=== PATIENT | female | born 1985 | race African-American/Black ===

== ENCOUNTER 2016-08-10 09:08 | Emergency (ER) | payer SELFPAY ==
[~2016-08-10] VITALS: Ht 165.1 cm; Wt 54.4 kg
[~2016-08-10 09:08] MED LIST: AMOX500C2 PO; CIPR500T4 PO; CYCL10TA9 PO; HYDR-1231 PO; IBP800T PO; IBUP-1773 PO; METH500T35 PO; NAPR-243 PO; NITR-65 PO; ONDAN4ODT PO; PENI500T PO; PHEN-639 PO; PRD20T PO; PRM25T PO; TRM50T PO
--- OUTSIDE RECORDS SUMMARY | 2016-08-10 09:13 | XMS REPORT | Continuity of Care Document ---
Author Author [facility] Organization [facility] Address Unknown Phone Unavailable Care Team Providers Care Transmission And Coordination Engineer Name Role Phone [facility] Insurance Providers Payer Name Policy Number Subscriber Name Relationship Unknown Daksha Keen 17 Self / Same As Patient Advance Directives Directive Response Recorded Date/Time Advance Directives No 05/06/16 11:31pm Health Care Power of Landscape Contractor No 05/06/16 11:31pm Organ Donor No 05/06/16 11:31pm Resuscitation Status Full Code 05/06/16 11:31pm Chief Complaint and Reason for Visit Chief Complaint Abdominal/GI Problems Reason for Visit Urinary tract infection Problems Active Problems Medical Problem Onset Date Status Fracture of toe Unknown Acute Muscle spasms of head AND/OR neck Unknown Acute Muscle strain Unknown Acute Sprain and strain of foot Unknown Acute Urinary tract infection Unknown Acute Medications Current Home Medications Medication Dose Units Route Directions Days/Qty Instructions Start Date Ibuprofen (Motrin) 600 Mg 600 Mg Oral Every 8HRS as needed for Pain 20 08/23/13 Hydrocodone Bit/Acetaminophen 1 Tab 1 Tab Oral Every 4HRS as needed for Pain 20 07/14/14 Ciprofloxacin Hcl 500 Mg 500 Mg Oral Twice A Day 13 05/07/16 Phenazopyridine Hcl 100 Mg 100 Mg Oral Three Times A Day as needed for Pain 12 05/07/16 Past Home Medications Medication Directions Ordered Status Ibuprofen 800 Mg Tab, 1 Tab Oral As Needed 01/13/11 Discontinued Tramadol Hcl 50 Mg Tab, 1 Tab Oral As Needed 08/01/11 Discontinued Naproxen 500 Mg Tablet, 1 Each Oral Three Times A Day And Prn 04/01/11 Discontinued Penicillin V Potassium 500 Mg Tablet, 1 Tab Oral Four Times Daily 04/01/11 Discontinued Amoxicillin 500 Mg Capsule, 21 Each Oral Three Times A Day 10/29/11 Discontinued Naproxen 500 Mg Tablet, 1 Each Oral Twice A Day as needed 10/29/11 Discontinued Nitrofurantoin Macrocrystals 100 Mg Capsule, 1 Each Oral Twice A Day Discontinued Ondansetron Hcl 4 Mg Tab, 4 Mg Oral Every 4HRS 11/19/11 Discontinued Cyclobenzaprine Hcl (Flexeril) 10 Mg Tablet, 1 Each Oral Twice A Day Discontinued Naproxen 500 Mg Tablet, 1 Each Oral Bid - Tid Prn 07/11/12 Discontinued Ibuprofen 800 Mg Tab, 800 Mg Oral Give Every 6 Hr On Schedule 09/29/12 Discontinued Methocarbamol 500 Mg Tablet, 500 Mg Oral Four Times Daily 09/29/12 Discontinued Tramadol Hcl 50 Mg Tab, 50 Mg Oral Q4-6HOURS as needed 09/29/12 Discontinued Promethazine Hcl 25 Mg Tablet, 1 Tab Oral Every 4HRS 10/27/12 Discontinued Prednisone 20 Mg Tab, 20 Mg Oral Daily 08/23/13 Discontinued Social History Social History Problem Response Recorded Date/Time Alcohol Use Occasionally Uses 07/14/2014 4:27pm Recreational Drug Use No 07/14/2014 4:27pm Recent Foreign Travel No 05/06/2016 11:31pm Recent Infectious Disease Exposure No 05/06/2016 11:31pm Smoking Status Current Everyday Smoker 05/06/2016 11:42pm Type Used Cigarettes 05/06/2016 11:31pm Recent Hopitalizations No 05/06/2016 11:31pm Query Response Start Date Stop Date Smoking Status Current Everyday Smoker Hospital Discharge Instructions No hospital discharge instructions. Plan of Care Discharge Date 05/07/16 12:08am Disposition 01 HOME, SELF-CARE Condition at Discharge Stable Instructions/Education Provided Urinary Tract Infection, Adult (DC) Prescriptions See Medication Section Referrals [facility] - Primary Care Physician Additional Instructions/Education All discharge instructions reviewed with patient and/or family. Voiced understanding. Drink plenty fluids. Take medications as directed. Follow-up with her in a few days for recheck. Return for worse pain, fever, vomiting, weakness, breathing problems or other concerns as needed. You may take Tylenol 1000 mg every 8 hours as needed for pain. You may take ibuprofen 800 mg every 8 hours as needed for pain. Functional Status No functional status results. Allergies, Adverse Reactions, Alerts No known allergies. Immunizations No immunization records. Vital Signs Acute Vital Signs Vital Response Date/Time Temperature (Fahrenheit) 96.2 degrees F (97.6 - 99.5) 05/06/2016 11:31pm Temperature (Calculated Celsius) 35.69700 degrees C (36.4 - 37.5) 05/06/2016 11:31pm Temperature Source Temporal 05/06/2016 11:31pm Pulse Rate (adult) 97 bpm (60 - 90) 05/06/2016 11:31pm Respiratory Rate 18 bpm (12 - 24) 05/06/2016 11:31pm O2 Sat by Pulse Oximetry 99 % (88 - 100) 05/06/2016 11:31pm Blood Pressure 115/79 mm Hg 05/06/2016 11:31pm Blood Pressure Mean 91 mm Hg 05/06/2016 11:31pm Pain Numeric Pain Scale 10-Worst Possible Pain 05/07/2016 12:07am Height (Feet) 5 feet 05/06/2016 11:31pm Height (Inches) 5 inches 05/06/2016 11:31pm Height (Calculated Centimeters) 165.475556 cm 05/06/2016 11:31pm Weight (Pounds) 120 pounds 05/06/2016 11:31pm Weight (Calculated Kilograms) 54.674941 kilograms 05/06/2016 11:31pm Capillary Refill Capillary Refill Less Than 3 Seconds 05/06/2016 11:31pm Height 5 ft 5 in Weight 120 lb Body Mass Index 20.0 kg/m^2 Results Laboratory Results Test Name Result Units Flags Reference Collection Date/Time Result Date/ Time Comments Urine Color YELLOW 05/06/2016 11:31pm 05/06/2016 11:52pm Urine Clarity VERY CLOUDY * 05/06/2016 11:31pm 05/06/2016 11:52pm Urine pH 6 5-9 05/06/2016 11:31pm 05/06/2016 11:52pm Urine Specific [place] 1.020 1.016-1.022 05/06/2016 11:31pm 2015 11:52pm Urine Protein 4+ NEGATIVE 05/06/2016 11:31pm 05/06/2016 11:52pm Urine Glucose (UA) NEGATIVE NEGATIVE 05/06/2016 11:31pm 05/06/2016 11 :52pm Urine RBC (Auto) 5+ * NEGATIVE 05/06/2016 11:31pm 05/06/2016 11:52pm Urine Ketones NEGATIVE NEGATIVE 05/06/2016 11:31pm 05/06/2016 11: 52pm Urine Nitrite POSITIVE * NEGATIVE 05/06/2016 11:31pm 05/06/2016 11: 52pm Urine Bilirubin NEGATIVE NEGATIVE 05/06/2016 11:31pm 05/06/2016 11: 52pm Urine Urobilinogen NORMAL MG/DL NORMAL 05/06/2016 11:31pm 05/06/2016 11 :52pm Urine Leukocyte Esterase 3+ * NEGATIVE 05/06/2016 11:31pm 05/06/2016 11 :52pm Urine RBC >100 /HPF * 05/06/2016 11:31pm 05/06/2016 11:52pm Urine WBC TNTC /HPF * 05/06/2016 11:31pm 05/06/2016 11:52pm Urine Bacteria LARGE /HPF * 05/06/2016 11:31pm 05/06/2016 11:52pm Urine Squamous Epithelial Cells 2-5 /HPF 05/06/2016 11:31pm 2015 11:52pm Urine Crystals NONE /LPF 05/06/2016 11:31pm 05/06/2016 11:52pm Urine Casts NONE /LPF 05/06/2016 11:31pm 05/06/2016 11:52pm Urine Mucus NEGATIVE /LPF 05/06/2016 11:31pm 05/06/2016 11:52pm Urine Culture Indicated YES 05/06/2016 11:31pm 05/06/2016 11:52pm Procedures No known history of procedures. Encounters Encounter Location Arrival/Admit Date Discharge/Depart Date Attending Provider Departed Emergency Room [facility] 05/06/16 11:26pm 12:08am MARGARET GALLARDO MD Recent Diagnosis
--- NOTE | 2016-08-10 09:37 | ED General ---
General Chief Complaint: Cough/Cold/Flu Symptoms Stated Complaint: COUGH/CONGESTION/EYE DRAINAGE Nursing Triage Note: pt reports cough/congestion/throat pain x 1 week. Nursing Sepsis Screen: No Definite Risk Source of Information: Patient Exam Limitations: No Limitations History of Present Illness Time Seen by Provider: 09:16 Initial Comments This 31-year-old woman presents to the emergency room with complaints of intense cough, chest discomfort, congestion, and eye irritation for nearly one week. She denies myalgia or headache. She is afebrile. She has been taking DayQuil, Mucinex, and other wlui-lvj-ecnppjn cough medications. She has taken ibuprofen as well. She denies with her last menstrual period being July 04. She admits to tobacco use. Allergies and Home Medications Allergies Coded Allergies: No Known Drug Allergies (Unverified , 01/13/11) Home Medications No Active Prescriptions or Reported Meds Constitutional: no symptoms reported EENTM: see HPI Respiratory: see HPI Cardiovascular: other (tachycardic) Gastrointestinal: no symptoms reported Genitourinary: no symptoms reported : No LMP: Jul 04, 2016 Musculoskeletal: no symptoms reported Skin: no symptoms reported Psychiatric/Neurological: No Symptoms Reported Past Kbtwzyj-Puuxvr-Eehprv Hx Patient Social History Alcohol Use: Denies Use Recreational Drug Use: No Smoking Status: Current Everyday Smoker Type Used: Cigarettes Recent Foreign Travel: No Contact w/Someone Who Travel: No Recent Infectious Disease Expo: No Recent Hopitalizations: No Immunizations Up To Date Tetanus Booster (TDap): More than 5yrs Seasonal Allergies Seasonal Allergies: No Surgeries HX Surgeries: No Respiratory Hx Respiratory Disorders: No Cardiovascular Hx Cardiac Disorders: Yes Cardiac Disorders: Heart Murmur Neurological Hx Neurological Disorders: No Reproductive System : No Hx Reproductive Disorders: No Genitourinary Hx Genitourinary Disorders: No Gastrointestinal Hx Gastrointestinal Disorders: No Musculoskeletal Hx Musculoskeletal Disorders: Yes Musculoskeletal Disorders: Chronic Back Pain Endocrine Hx Endocrine Disorders: No HEENT HX ENT Disorders: No Cancer Hx Cancer: No Psychosocial Hx Psychiatric Problems: No Integumentary HX Skin/Integumentary Disorder: No Blood Transfusions Hx Blood Disorders: No Family Medical History Significant Family History: Diabetes Physical Exam Vital Signs Vital Sign - Last 12Hours 08/10/16 08/10/16 09:14 09:45 Temp 97.7 Pulse 110 Resp 18 B/P 130/85 Pulse Ox 96 O2 Delivery Room Air Capillary Refill : Less Than 3 Seconds General Appearance: No Apparent Distress WD/WN HEENT: PERRL/EOMI Pharynx Normal Other (watery eyes with scleral erythema bilaterally) Neck: Normal Inspection Respiratory: Lungs Clear Normal Breath Sounds No Accessory Muscle Use No Respiratory Distress Other (no forced expiratory wheeze. Cough noted) Cardiovascular: No Edema No Murmur Tachycardia Extremity: Normal Inspection No Pedal Edema Neurologic/Psychiatric: Alert Oriented x3 No Motor/Sensory Deficits Normal Mood/Affect senior boiler operator II-XII Norm as Tested Skin: Normal Color Warm/Dry Progress/Results/Core Measures Results/Orders Micro Results Microbiology 08/10/16 Influenza Types A,B Antigen (CHARLIE) - Final, Complete My Orders Orders-OLIVA MOSELEY MD Influenza A And B Antigens (08/10/16 09:16) Urine Bedside (08/10/16 09:39) Vital Signs/I&O Vital Sign - Last 12Hours 08/10/16 08/10/16 09:14 09:45 Temp 97.7 Pulse 110 Resp 18 B/P 130/85 Pulse Ox 96 O2 Delivery Room Air Blood Pressure Mean: 100 Progress Note : Progress Note Patient is late on her menstrual cycle. Urine test was negative. Influenza screen was negative. Patient was offered a chest x-ray but declines as her syndrome appears to be viral in nature. Departure Impression Impression: Primary Impression: Viral upper respiratory illness Disposition: 01 HOME, SELF-CARE Condition: Stable Departure-Patient Inst. Decision time for Depature: 09:50 Referrals: [facility] (PCP/Family) Primary Care Physician Patient Instructions: Viral Upper Respiratory Infection, Adult (DC) Add. Discharge Instructions: You may continue using over the counter cough and cold products. Antihistamine should help with your eye and nose symptoms. Products with dextromethorphan (DM ) should help suppress cough. Tessalon Perles prescribed may be used for cough uncontrolled by pxgj-zre-twruura medicines. Avoid cigarette smoke and work toward quitting. You may replace nicotine with patches, gum, or lozenges. Avoid inhaled nicotine replacement. Return to care if symptoms worsen. All discharge instructions reviewed with patient and/or family. Voiced understanding. Scripts Benzonatate 200 Mg [id number] Mg PO TID PRN COUGH #20 CAP Prov:OLIVA MOSELEY MD 08/10/16 OLIVA MOSELEY MD Aug 10, 2016 09:36
[2016-08-10] MEDS ORDERED: BENZ200C51 PO (09:55)
[2016-08-10 10:08] VITALS: BP 128/86
== END 2016-08-10 10:08 | disposition home or self-care (01) ==
LOC: EDUNIT# 09:08 → ER 09:10
DX: J06.9 Acute upper respiratory infection, unspecified (principal); F17.210 Nicotine dependence, cigarettes, uncomplicated
CPT/HCPCS: 84703; 87804; 99282

== ENCOUNTER 2017-11-13 17:49 | Emergency (ER) | payer SELFPAY ==
[~2017-11-13] VITALS: Ht 167.6 cm; Wt 64.4 kg
[~2017-11-13 17:49] MED LIST changes: +BENZ200C51 PO
[2017-11-13] MEDS ORDERED: SULF1TAB35 PO (18:15)
[2017-11-13 18:24] LABS: BILIRUBIN,URINE NEGATIVE (NEGATIVE); CLARITY,URINE VERY CLOUDY; COLOR,URINE YELLOW; GLUCOSE, URINE (UA) NEGATIVE (NEGATIVE); KETONES,URINE NEGATIVE (NEGATIVE); LEUKOCYTE ESTERASE ,URINE 3+ (NEGATIVE); NITRITE,URINE NEGATIVE (NEGATIVE); PH,URINE 6 (5-9); PROTEIN,URINE 3+ (NEGATIVE); UROBILINOGEN,URINE NORMAL (NORMAL)
[2017-11-13 18:40] LABS: BACTERIA,URINE FEW /HPF; RBC,URINE >100 /HPF; SQUAMOUS EPITHELIAL CELL,UR 0-2 /HPF; WBC,URINE >100 /HPF
[2017-11-13] MEDS ORDERED: NS IV 1000 ML 1,000 ML IV SCH ×2 (18:45)
[2017-11-13] MEDS ORDERED: KETOROLAC 30 MG/ML VIAL IVP ONE ×2 (18:45)
[2017-11-13] MEDS ORDERED: cefTRIAXone INJECTION 1,000 MG in NS (IVPB) 50 ML IV ONE ×4 (18:45)
--- NOTE | 2017-11-13 18:50 | ED GU-Female ---
General Chief Complaint: -Female Stated Complaint: UTI Nursing Triage Note: C/O UTI SYMPTOMS. WAS SEEN AT [facility] ON THU RECEIVED HAS NOT SEEN ANY IMPROVEMENT IN SYMPTOMS Nursing Sepsis Screen: No Definite Risk Source: patient Exam Limitations: no limitations History of Present Illness Date Seen by Provider: Nov 13, 2017 Time Seen by Provider: 18:48 Initial Comments to ER with reports of urinary frequency and burning upon urination with some leakage of urine occasionally. 5 days ago she was seen at [facility] for the same symptoms diagnosed with urinary tract infection and given a course of 5 days worth of Bactrim and Pyridium. She finished the Bactrim today but the symptoms are still present. She denies nausea or fevers or flank pain. She complains of some right proximal anterior medial thigh pain. She denies vaginal discharge. Timing/Duration: constant, week Severity/Quality: moderate Location: unknown Radiation: none Activities at Onset: none Prior Genitourinary Problems: none Associated Symptoms: dysuria Allergies and Home Medications Allergies Coded Allergies: No Known Drug Allergies (Unverified , 01/13/11) Home Medications Benzonatate 200 Mg Capsule, 200 MG PO TID PRN for COUGH Prescribed by: OLIVA WOODS on 08/10/16 0955 Cefdinir 300 Mg Capsule, 300 MG PO BID Prescribed by: MELISSA CARBAJAL on 11/13/17 1915 Patient Home Medication List Home Medication List Reviewed: Yes Review of Systems Constitutional: see HPI EENTM: see HPI Respiratory: no symptoms reported Cardiovascular: no symptoms reported Genitourinary: see HPI Musculoskeletal: no symptoms reported Skin: no symptoms reported Psychiatric/Neurological: No Symptoms Reported Endocrine: No Symptoms Reported Past Yfvolxr-Tcbsok-Xqlpsz Hx Patient Social History Alcohol Use: Denies Use Recreational Drug Use: No Smoking Status: Current Everyday Smoker Type Used: Cigarettes Recent Foreign Travel: No Contact w/Someone Who Travel: No Recent Infectious Disease Expo: No Recent Hopitalizations: No Immunizations Up To Date Tetanus Booster (TDap): More than 5yrs Seasonal Allergies Seasonal Allergies: No Past Medical History Surgeries: No Respiratory: No Cardiac: Yes Heart Murmur Neurological: No Reproductive Disorders: No Gastrointestinal: No Musculoskeletal: Yes Chronic Back Pain Endocrine: No Cancer: No Psychosocial: No Integumentary: No Blood Disorders: No Family Medical History Diabetes Physical Exam Vital Signs Vital Signs - First Documented 11/13/17 11/13/17 17:54 19:43 Temp 96.7 Pulse 110 Resp 18 B/P (MAP) 130/80 Pulse Ox 96 Capillary Refill : Less Than 3 Seconds General Appearance: WD/WN, no apparent distress HEENT: PERRL/EOMI, normal ENT inspection Neck: non-tender, full range of motion Cardiovascular: no murmur, tachycardia Respiratory: normal breath sounds, no respiratory distress, no accessory muscle use Gastrointestinal: normal bowel sounds, non tender, soft Extremities: normal range of motion, non-tender Neurologic/Psychiatric: alert, normal mood/affect, oriented x 3 Skin: normal color, warm/dry Progress/Results/Core Measures Suspected Sepsis Recent Fever Within 48 Hours: No Infection Criteria Present: None New/Unexplained Altered Menta: No Sepsis Screen: No Definite Risk SIRS Temperature:96.7 Pulse: 110 Respiratory Rate: 18 Laboratory Tests 11/13/17 18:42: White Blood Count 4.9 Blood Pressure / Mean: Laboratory Tests 11/13/17 18:42: Creatinine 1.11, Platelet Count 440H, Total Bilirubin 0.3 Results/Orders Lab Results Laboratory Tests Test 11/13/17 16:42 11/13/17 18:42 Range/Units Urine Color YELLOW Urine Clarity VERY CLOUDY H Urine pH 6 5-9 Urine Specific [place] 1.015 L 1.016-1.022 Urine Protein 3+ H NEGATIVE Urine Glucose (UA) NEGATIVE NEGATIVE Urine Ketones NEGATIVE NEGATIVE Urine Nitrite NEGATIVE NEGATIVE Urine Bilirubin NEGATIVE NEGATIVE Urine Urobilinogen NORMAL NORMAL MG/DL Urine Leukocyte Esterase 3+ H NEGATIVE Urine RBC (Auto) 5+ H NEGATIVE Urine RBC >100 H /HPF Urine WBC >100 H /HPF Urine Squamous Epithelial Cells 0-2 /HPF Urine Crystals NONE /LPF Urine Bacteria FEW H /HPF Urine Casts NONE /LPF Urine Mucus NEGATIVE /LPF Urine Culture Indicated YES White Blood Count 4.9 4.3-11.0 10^3/uL Red Blood Count 4.36 4.35-5.85 10^6/uL Hemoglobin 13.2 11.5-16.0 G/DL Hematocrit 39 35-52 % Mean Corpuscular Volume 90 80-99 FL Mean Corpuscular Hemoglobin 30 25-34 PG Mean Corpuscular Hemoglobin Concent 34 32-36 G/DL Red Cell Distribution Width 12.6 10.0-14.5 % Platelet Count 440 H 130-400 10^3/uL Mean Platelet Volume 9.5 7.4-10.4 FL Neutrophils (%) (Auto) 42 42-75 % Lymphocytes (%) (Auto) 47 H 12-44 % Monocytes (%) (Auto) 8 0-12 % Eosinophils (%) (Auto) 2 0-10 % Basophils (%) (Auto) 0 0-10 % Neutrophils # (Auto) 2.0 1.8-7.8 X 10^3 Lymphocytes # (Auto) 2.3 1.0-4.0 X 10^3 Monocytes # (Auto) 0.4 0.0-1.0 X 10^3 Eosinophils # (Auto) 0.1 0.0-0.3 10^3/uL Basophils # (Auto) 0.0 0.0-0.1 10^3/uL Sodium Level 138 135-145 MMOL/L Potassium Level 4.6 3.6-5.0 MMOL/L Chloride Level 103 98-107 MMOL/L Carbon Dioxide Level 23 21-32 MMOL/L Anion Gap 12 5-14 MMOL/L Blood Urea Nitrogen 15 7-18 MG/DL Creatinine 1.11 0.60-1.30 MG/DL Estimat Glomerular Filtration Rate > 60 BUN/Creatinine Ratio 14 Glucose Level 70 70-105 MG/DL Calcium Level 10.2 H 8.5-10.1 MG/DL Total Bilirubin 0.3 0.1-1.0 MG/DL Aspartate Amino Transf (AST/SGOT) 27 5-34 U/L Alanine Aminotransferase (ALT/SGPT) 32 0-55 U/L Alkaline Phosphatase 59 40-136 U/L Total Protein 8.6 H 6.4-8.2 GM/DL Albumin 4.5 3.2-4.5 GM/DL My Orders Orders - MELISSA CARBAJAL APRN Ua Culture If Indicated (11/13/17 18:14) Cbc With Automated Diff (11/13/17 18:34) Comprehensive Metabolic Panel (11/13/17 18:34) Iv [place]-Insert (Order) (11/13/17 18:34) Urine Culture (11/13/17 16:42) Ns Iv 1000 Ml (Sodium Chloride 0.9%) (11/13/17 18:45) Ceftriaxone Injection (Rocephin Injectio (11/13/17 18:45) Ketorolac Injection (Toradol Injection) (11/13/17 18:45) Ns Iv 1000 Ml (Sodium Chloride 0.9%) (11/13/17 18:45) Ceftriaxone Injection (Rocephin Injectio (11/13/17 18:45) Ketorolac Injection (Toradol Injection) (11/13/17 18:45) Medications Given in ED Current Medications Medications Dose Ordered Sig/Ed Route Start Time Stop Time Status Last Admin Dose Admin Ceftriaxone Sodium 1000 mg/ Sodium Chloride 50 ml @ 100 mls/hr ONCE ONCE IV 11/13/17 18:45 11/13/17 19:14 DC 11/13/17 18:55 100 MLS/HR Ketorolac Tromethamine 15 mg ONCE ONCE IVP 11/13/17 18:45 11/13/17 18:46 DC 11/13/17 18:54 15 MG Vital Signs/I&O 11/13/17 11/13/17 17:54 19:43 Temp 96.7 96.7 Pulse 110 90 Resp 18 18 B/P (MAP) 130/80 Pulse Ox 96 96 Capillary Refill : Less Than 3 Seconds Departure Impression Primary Impression: Urinary tract infection Disposition: 01 HOME, SELF-CARE Condition: Stable Departure-Patient Inst. Decision time for Depature: 19:14 Referrals: [facility] [place] (PCP/Family) Primary Care Physician Patient Instructions: Urinary Tract Infection, Adult (DC) Add. Discharge Instructions: 1.Take the new antibiotics as directed. Tylenol and Motrin for pain or fevers. Return to ER for any worsening symptoms. Follow-up with your doctor next week.All discharge instructions reviewed with patient and/or family. Voiced understanding. Scripts Cefdinir (Cefdinir) 300 Mg Capsule 300 MG PO BID, #14 CAP Prov: MELISSA CARBAJAL DOCUMENTUM CONSULTANT 11/13/17 MELISSA CARBAJAL DOCUMENTUM CONSULTANT Nov 13, 2017 18:50
[2017-11-13 18:51] LABS: BASOPHILS % (AUTO) 0 % (0-10); EOSINOPHILS # (AUTO) 0.1 10^3/uL (0.0-0.3); EOSINOPHILS % (AUTO) 2 % (0-10); HEMATOCRIT 39 % (35-52); HEMOGLOBIN 13.2 G/DL (11.5-16.0); LYMPHOCYTES # (AUTO) 2.3 X 10^3 (1.0-4.0); LYMPHOCYTES % (AUTO) 47 % (12-44); MEAN CORPUSCULAR HEMOGLOBIN 30 PG (25-34); MEAN CORPUSCULAR HGB CONC 34 G/DL (32-36); MEAN CORPUSCULAR VOLUME 90 FL (80-99); MEAN PLATELET VOLUME 9.5 FL (7.4-10.4); MONOCYTES # (AUTO) 0.4 X 10^3 (0.0-1.0); MONOCYTES % (AUTO) 8 % (0-12); NEUTROPHILS % (AUTO) 42 % (42-75); PLATELET COUNT 440 10^3/uL (130-400); RED BLOOD COUNT 4.36 10^6/uL (4.35-5.85); RED CELL DISTRIBUTION WIDTH 12.6 % (10.0-14.5); WHITE BLOOD COUNT 4.9 10^3/uL (4.3-11.0)
[2017-11-13 19:12] LABS: ALANINE AMINOTRANSFERASE 32 U/L (0-55); ALBUMIN 4.5 GM/DL (3.2-4.5); ALKALINE PHOSPHATASE 59 U/L (40-136); BILIRUBIN,TOTAL 0.3 MG/DL (0.1-1.0); BUN/CREATININE RATIO 14; CALCIUM 10.2 MG/DL (8.5-10.1); CARBON DIOXIDE 23 MMOL/L (21-32); CHLORIDE 103 MMOL/L (98-107); CREATININE SERUM 1.11 MG/DL (0.60-1.30); GFR ESTIMATED > 60; GLUCOSE 70 MG/DL (70-105); POTASSIUM 4.6 MMOL/L (3.6-5.0); SODIUM 138 MMOL/L (135-145); TOTAL PROTEIN 8.6 GM/DL (6.4-8.2)
[2017-11-13] MEDS ORDERED: CEFD300C3 PO (19:15)
[2017-11-13 19:43] VITALS: BP 130/80
== END 2017-11-13 19:43 | disposition home or self-care (01) ==
LOC: EDUNIT# 17:49 → ER 17:50
DX: N39.0 Urinary tract infection, site not specified (principal); F17.210 Nicotine dependence, cigarettes, uncomplicated
CPT/HCPCS: 36415; 80053; 81000; 85025; 87088; 96361; 96365; 96375

== ENCOUNTER 2021-06-07 17:56 | Emergency (ER) | payer SELFPAY ==
[~2021-06-07] VITALS: Ht 167.7 cm; Wt 68.0 kg
[~2021-06-07 17:56] MED LIST changes: +CEFD300C3 PO; -CIPR500T4 PO; +CIPR500T5 PO; +SULF1TAB38 PO
[2021-06-07] MEDS ORDERED: IBUPROFEN 800 MG (MOTRIN) TAB PO ONE (18:45)
[2021-06-07] MEDS ORDERED: ACETAMINOPHEN 500 MG TAB (TYLENOL) PO ONE (18:45)
--- NOTE | 2021-06-07 19:39 | ED Cough/URI ---
General Chief Complaint: COVID19 Suspect/Confirmed Stated Complaint: FEVER,BODY ACHE,CHEST PAIN,HEADACHE Source: patient Exam Limitations: no limitations History of Present Illness Date Seen by Provider: Jun 07, 2021 Time Seen by Provider: 19:20 Initial Comments Patient ER by private conveyance chief complaint that for 1 day she has had body aches malaise fever of 100.1, chills. No dysuria diarrhea nausea vomiting or cough. No runny nose or ears feeling underwater. No known sick contacts. She does not have vaccination for Covid or influenza. She smokes about a pack a day but has no other significant medical history. No history of lung disease. She took some Tylenol when she got to the ER. Allergies and Home Medications Allergies Coded Allergies: No Known Drug Allergies (Unverified , 01/13/11) Patient Home Medication List Home Medication List Reviewed: Yes Benzonatate (Benzonatate) 200 Mg Capsule, 200 MG PO TID PRN for COUGH Prescribed by: OLIVA WOODS on 08/10/16 0955 Cefdinir (Cefdinir) 300 Mg Capsule, 300 MG PO BID Prescribed by: MELISSA CARBAJAL on 11/13/17 191 Sulfamethoxazole/Trimethoprim (Bactrim Ds Tablet) 1 Each Tablet, 1 EACH PO, (Reported) Entered as Reported by: YULIA CARY on 11/13/171814 Review of Systems Review of Systems Constitutional: No chills, No diaphoresis EENTM: No ear discharge, No ear pain Respiratory: No cough, No short of breath Cardiovascular: No chest pain, No palpitations Gastrointestinal: No abdominal pain, No nausea, No vomiting Genitourinary: No discharge, No dysuria Musculoskeletal: No back pain, No joint pain All Other Systems Reviewed Negative Unless Noted: Yes Past Iuyhzzx-Hmezwm-Pywstb Hx Patient Social History Tobacco Use?: No Use of E-Cig and/or Vaping dev: No Substance use?: No Immunizations Up To Date Tetanus Booster (TDap): More than 5yrs Seasonal Allergies Seasonal Allergies: No Past Medical History Surgeries: No Respiratory: No Cardiac: Yes Heart Murmur Neurological: No Reproductive Disorders: No Gastrointestinal: No Musculoskeletal: Yes Chronic Back Pain Endocrine: No Cancer: No Psychosocial: No Integumentary: No Blood Disorders: No Family Medical History Diabetes Physical Exam Capillary Refill : Height: 5'6.00" Weight: 142lbs. oz. 64.008868ze; BMI Method:Stated General Appearance: WD/WN, no apparent distress Eyes: Bilateral Eye Normal Inspection, Bilateral Eye PERRL, Bilateral Eye EOMI HEENT: PERRL/EOMI, normal ENT inspection, TMs normal, pharynx normal (Orophary nx is moist) Neck: full range of motion, normal inspection Respiratory: lungs clear, normal breath sounds, no respiratory distress, no accessory muscle use Cardiovascular: normal peripheral pulses, regular rate, rhythm Neurologic/Psychiatric: alert, normal mood/affect, oriented x 3 Skin: normal color, warm/dry Progress/Results/Core Measures Suspected Sepsis SIRS Temperature: Pulse: Respiratory Rate: Blood Pressure / Mean: Results/Orders Lab Results Laboratory Tests Test 06/07/21 18:53 Range/Units Influenza Type A (RT-PCR) Not Detected Not Detecte Influenza Type B (RT-PCR) Not Detected Not Detecte SARS-CoV-2 RNA (RT-PCR) Not Detected Not Detecte Medications Given in ED Current Medications Medications Dose Ordered Sig/Ed Route Start Time Stop Time Status Last Admin Dose Admin Acetaminophen 1,000 mg ONCE ONCE PO 06/07/21 18:45 06/07/21 18:47 DC 06/07/21 19:11 1,000 MG Ibuprofen 800 mg ONCE ONCE PO 06/07/21 18:45 06/07/21 18:47 DC 06/07/21 19:11 800 MG Vital Signs/I&O Capillary Refill : Progress Note : Time: 19:36 Progress Note Aseptic vital signs clear lung sounds oxygenating well on room air without labored breathing. Viral syndrome most likely. Covid and influenza swabs were obtained. Tylenol Motrin for her symptoms. Departure Impression Primary Impression: Upper respiratory infection Qualified Codes: J06.9 - Acute upper respiratory infection, unspecified Disposition: HOME, SELF-CARE Condition: Stable Departure-Patient Inst. Decision time for Depature: 19:50 Referrals: [facility] (PCP/Family) Primary Care Physician Patient Instructions: Viral Upper Respiratory Infection, Adult (DC) Add. Discharge Instructions: Tylenol 1000 mg every 8 hours as necessary for body aches or fever. Ibuprofen 800 mg every 8 hours as necessary for body aches or fever. Zofran/ondansetron 1 tablet every 6 hours under the tongue as necessary for nausea and/or vomiting. Drink lots of fluids. Humidifiers and vapor rubs are very helpful. Decongestants and cough medicine such as an DayQuil, NyQuil, Sudafed etc. All discharge instructions reviewed with patient and/or family. Voiced understanding. Work/School Note: Work Release Form Date Seen in the Emergency Department: Jun 07, 2021 Return to Work: Jun 14, 2021 Restrictions: No Restrictions FERMIN URBANO Jun 07, 2021 19:39
[2021-06-07 20:10] VITALS: BP 108/54
[2021-06-07] MEDS ORDERED: RX-ONDANSETRON 4 MG ODT (ZOFRAN) PPK #4 PO STA (20:11)
[2021-06-07] MEDS ORDERED: RX-ONDANSETRON 4 MG ODT (ZOFRAN) PPK #4 ONE (20:12)
[2021-06-07] MEDS ORDERED: ONDA4TAB11 PO (20:12)
== END 2021-06-07 20:10 | disposition home or self-care (01) ==
LOC: EDUNIT# 17:56 → ER 18:00
DX: J06.9 Acute upper respiratory infection, unspecified (principal); Z20.822 Contact with and (suspected) exposure to COVID-19
CPT/HCPCS: 87636; 93005